=== PATIENT | female | born 1995 | race Caucasian/White ===

== ENCOUNTER 2020-09-12 17:10 | Emergency (ER) | payer OTHER ==
[~2020-09-12] VITALS: Ht 160 cm; Wt 99.8 kg
[2020-09-12] MEDS ORDERED: HYDROCODON-ACE1 EAC7 PO (18:44)
[2020-09-12 18:50] VITALS: BP 132/93
== END 2020-09-12 18:50 | disposition home or self-care (01) ==
LOC: M.ERS 17:10
DX: S93.401A Sprain of unspecified ligament of right ankle, initial encounter (principal); X50.1XXA Overexertion from prolonged static or awkward postures, initial encounter; Y93.68 Activity, volleyball (beach) (court); Y92.89 Other specified places as the place of occurrence of the external cause; Y99.8 Other external cause status